=== PATIENT | male | born 1980 | race Caucasian/White ===

== ENCOUNTER → 2023-05-07 12:41 | Outpatient (CLI) | payer OTHER, SELFPAY ==
--- NOTE | ~2023-05-07 | MR_ITS ---
EXAMINATION: MR wrist LT wo con DATE: 05/07/2023 13:32 INDICATION: Right wrist trying fibrocartilage complex tear presenting with right wrist pain TECHNIQUE: Magnetic resonance imaging (MRI) of the right wrist was performed without intravenous cont rast. Sequences performed include axial PD-weighted FSE and PD-weighted FS FSE, coronal PD-weighted F S FSE and T1-weighted SE, and sagittal PD-weighted FS FSE and PD-weighted FSE. COMPARISON: None FINDINGS: Intrinsic ligaments: The scapholunate and lunotriquetral ligaments are normal. Triangular fibrocartilage complex (TFCC): There is increased signal of less than fluid intensity extending along the dorsal radioulnar ligament consistent with partial tear. The volar radioulnar ligament and its radial and foveal attachments ap pear to remain intact. Partial tear at the ulnar styloid attachment of the triangular fibrocartilage complex. The extensor carpi ulnaris tendon sheath is normal. Extensor wrist: Mild fusiform thickening of the extensor carpi ulnaris tendon at level of the ulnar styloid process w ith a linear increased signal extending to the periphery of the tendon consistent with longitudinal s plit tear. Remaining extensor tendons of the wrist are normal. There is however mild fluid signal jimbo ng the tendons in the second, third and fourth dorsal compartments consistent with mild tenosynovitis . Flexor wrist: The flexor tendons of the wrist are normal. No abnormality in the carpal tunnel with normal median n erve. Guyon's canal: Guyon's canal including the ulnar nerve and artery are normal. Bones/other: No fracture, erosions, avascular necrosis or pathologic marrow replacing process. Mild osteoarthritis with mild partial-thickness cartilage loss along portions of the radiocarpal and triscaphe joints. T here is associated underlying edema-like signal change at the proximal articular surface of the trape zoid. There is diffuse increased fluid signal throughout the soft tissues between the dorsal margin o f the carpus and the fascia overlying the extensor tendons likely related to carpal synovitis. There is increased fluid in the pisotriquetral recess. IMPRESSION: 1. Partial tear of the ulnar styloid attachment and dorsal radioulnar ligament of the triangular fibr ocartilage complex. 2. Nonspecific dorsal carpal synovitis and mild tenosynovitis along the extensor tendons of the secon d, third and fourth dorsal compartments is of indeterminate etiology includes rheumatoid arthritis an d crystalline arthropathies although no evident osseous erosions are identified.. 3. Mild tendinopathy and small longitudinal split tear of the extensor carpi ulnaris tendon at the le marv of the ulnar styloid process. 4. 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 Reviewed, dictated and finalized at location A. IMPRESSION: 1. Partial tear of the ulnar styloid attachment and dorsal radioulnar ligament of the triangular fibrocartilage complex. 2. Nonspecific dorsal carpal synovitis and mild tenosynovitis along the extenso r tendons of the second, third and fourth dorsal compartments is of indetermina te etiology includes rheumatoid arthritis and crystalline arthropathies althoug h no evident osseous erosions are identified.. 3. Mild tendinopathy and small longitudinal split tear of the extensor carpi ul naris tendon at the level of the ulnar styloid process. 4. 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
== END ==
PROVIDERS: PCP Family Medicine Sports Medicine
DX: S63.592A Other specified sprain of left wrist, initial encounter (principal); X58.XXXA Exposure to other specified factors, initial encounter
CPT/HCPCS: 73221